=== PATIENT | female | born 1980 | race Caucasian/White ===

== ENCOUNTER 2021-01-08 20:34 | Emergency (ER) | payer OTHER ==
[~2021-01-08] VITALS: Ht 162.6 cm; Wt 63.5 kg
[2021-01-09] MEDS ORDERED: KETO10TA2 PO (01:15)
[2021-01-09] MEDS ORDERED: ORPHENADRINE C100 MG PO (01:15)
[2021-01-09] MEDS ORDERED: MEDROLPACK PO (01:15)
== END 2021-01-09 01:26 | disposition home or self-care (01) ==
LOC: ER 20:34
DX: M62.838 Other muscle spasm (principal); R53.1 Weakness; M54.2 Cervicalgia